=== PATIENT | female | born 2000 | race African-American/Black ===

== ENCOUNTER 2021-02-23 10:58 | Emergency (ER) | payer MEDICAID, SELFPAY ==
[2021-02-23 11:27] VITALS: BP 132/74; PULSE 63; RESP 18; TEMP 36.9; O2SAT 100; BMI 25.0
--- NOTE | 2021-02-23 12:03 | ED_ITS ---
HPI - Animal Bite General Chief Complaint: Animal Bite Stated Complaint: dog bite Time Seen by Provider: 02/23/21 11:40 Source: patient Mode of arrival: ambulatory Limitations: no limitations History of Present Illness HPI narrative: 20-year-old here with complaints of dog bite to the right and left hand. They tell me that the dog that they have is unvaccinated and has had some increasing aggression over the last few weeks. They are considering getting him noted. Today bit the patient's left and right hand was several puncture sites noted. Again not vaccinated for rabies. Patient last had a tetanus in 2011. complaint: animal bite Onset (ago): hour(s) Animal: dog Description of animal: household pet Related Data Previous Rx's Medication Instructions Recorded amoxicillin 875 mg-potassium 1 tab PO BID #14 tab 02/23/21 clavulanate 125 mg tablet (Augmentin) Allergies Allergy/AdvReac Type Severity Reaction Status Date / Time No Known Allergies Allergy Verified 02/23/21 11:31 Review of Systems Review of Systems: Yes all other systems are reviewed and are negative Constitutional: Constitutional: Reports no additional constitutional complaints, Denies body ache(s), Denies chills, Denies fever(s), Denies headache(s) and Denies weakness Eyes: Eyes: Reports no additional eye complaints and Denies change in vision ENT: Reports system reviewed and no additional complaints, except as documented, Denies dizziness, Denies headache(s), Denies nasal congestion, Denies nasal discharge and Denies neck pain Cardiovascular: Cardiovascular: Reports no additional cardiovascular complaints, Denies chest pain, Denies leg edema and Denies dyspnea Respiratory: Respiratory: Reports no additional respiratory complaints, Denies cough and Denies dyspnea Gastrointestinal: Gastrointestinal: Reports no additional gastrointestinal c omplaints, Denies abdominal pain, Denies diarrhea, Denies nausea and Denies vomiting Genitourinary: Genitourinary: Reports no additional female genitourinary complaints and Denies urinary incontinence Musculoskeletal: Musculoskeletal: Reports no additional musculoskeletal complaints, Denies back pain, Denies arthralgias, Denies joint swelling, Denies neck pain, Denies numbness and Denies tingling Integumentary/Breasts: Skin/Breast: Reports system reviewed and no additional complaints, except as docu and Denies rash Comments: +puncture wounds Neurologic: Reports system reviewed and no additional complaints, except as documented, Denies Abnormal speech present, Denies dizziness, Denies headache(s), Denies numbness, Denies tingling and Denies weakness PMFSH Past Medical History Attestation statement: The following information was validated with the patient. Source: old records reviewed and nursing notes reviewed Medical History No known health problems Social History Social History Advance Directives: No Advance Directives Information Provided: No Patient : No Physical Exam Vital Signs: Vital Signs: Last Vital Signs Temp 98.4 F 02/23/21 11:27 Pulse 63 02/23/21 11:27 Resp 18 02/23/21 11:27 BP 132/74 02/23/21 11:27 Pulse Ox 100 02/23/21 11:27 Body Mass Index 25.0 Const: General: cooperative, healthy appearing, comfortable and no acute distress Orientation/consciousness: patient oriented x3 Limitations: no limitations HENMT: Head: Yes normal to inspection Ears: hearing grossly normal bilaterally General nose exam: Normal external nose present Face and sinus: Yes normal facial exam Mouth: Normal oral and palatal mucosa present Throat: Yes posterior oropharynx normal Eyes: General: appearance normal, both eyes and all related structures Pupils: Equal, round and reactive pupils present Neck: Neck: Yes normal visual inspection Chest: Chest palpation & inspection: normal inspection of the chest Resp: Effort & Inspection: normal respiratory effort Auscultation: clear to auscultation bilaterally Cardio: Rate: regular rate Rhythm: regular rhythm Peripheral pulses: Peripheral pulses 2+ throughout GI: Inspection: Yes normal to inspection Palpation (GI): Soft to palpation and nontender Auscultation: normal bowel sounds Back/Spine/Pelvis: Thoracic/Lumbar Spine: thoracic and lumbar spine normal to inspection Skin: General skin exam: no rashes or lesions noted Neuro: General: patient oriented x3, no focal motor deficits and normal sensation to monofilament Cranial nerves: Yes Equal, round and reactive pupils present Cognition (Neuro): normal cognition Speech: No Abnormal speech present Gait exam (Neuro): Normal gait present Motor exam (neuro): 5/5 motor strength present throughout Extrem: Other: Puncture wounds noted to the right 1st digit and to the left hand. General: Yes normal to inspection Course Course Course Narrative: Puncture wounds to the bilateral hands from a patient's dog that is unvaccinated. I offer the patient may observe her dog at for several days and hold on receiving the rabies series but she wants to receive her Isatu series. Therefore I ordered hyper-rab, tetanus to be updated and a dose of oral antibiotics reviewed worrisome signs and symptoms when to return to the emergency department. Comfortable discharge home. MDM - Animal Bite Differential Diagnosis Differential diagnosis: Likely bite by animal Medical Records Attestation: I reviewed the patient's medical records. Lab Data Attestation: I reviewed the patient's lab results. Discharge Plan Discharge Clinical Impression: Bite by animal, Dog bite Patient Disposition: Home, Self-Care Instructions: Animal Bite (ED), Rabies (ED) Additional Instructions: keep the wounds clean, covered and dry, follow the rabies vaccine series Return for increasing redness, swelling or pain or fever Prescriptions: New amoxicillin-pot clavulanate [Augmentin] 875-125 mg tablet 1 tab PO BID Qty: 14 RF: 0 Referrals: Physician,None [Primary Care Provider] - 2 days
[2021-02-23] MEDS: Diphth,Pertus(ACell),Tet Adult 0.5 ML SYRINGE IM (12:07)
[2021-02-23] MEDS: Amoxicillin/Potassium Clav 875 MG TABLET PO (12:07)
[2021-02-23] MEDS: Rabies Immune Globulin/PF 1,500 UNIT/5 ML VIAL 1406.14 UNIT IM (12:23)
--- NOTE | 2021-02-23 12:55 | PC.NURSE ---
ORDER FOR RABIES VACCINATIONS FAXED TO PHARMACY AND SHORT STAY.
== END 2021-02-23 12:55 | disposition home or self-care (01) ==
PROVIDERS: Emergency Provider Emergency Medicine
DX: S61.432A Puncture wound without foreign body of left hand, initial encounter (principal); S61.431A Puncture wound without foreign body of right hand, initial encounter; W54.0XXA Bitten by dog, initial encounter; Y93.9 Activity, unspecified; Y92.009 Unspecified place in unspecified non-institutional (private) residence as the place of occurrence of the external cause; Y99.9 Unspecified external cause status; Z20.3 Contact with and (suspected) exposure to rabies
CPT/HCPCS: 90375; 90471; 90472; 90715; 99283; 99284

== ENCOUNTER 2021-02-26 17:25 | Outpatient (REF) | payer MEDICAID, SELFPAY | END 2021-02-26 17:26 | disposition home or self-care (01) | LOC: HO.MDS 17:25 | PROVIDERS: Visit Provider Nurse Practitioner Family | DX: Z29.14 Encounter for prophylactic rabies immune globulin (principal); S61.452D Open bite of left hand, subsequent encounter; S61.451D Open bite of right hand, subsequent encounter; W54.0XXD Bitten by dog, subsequent encounter; Z20.3 Contact with and (suspected) exposure to rabies | CPT/HCPCS: 90471; 90675 ==

== ENCOUNTER 2021-08-06 10:09 | Outpatient (REF) | payer MEDICAID, SELFPAY ==
[2021-08-06 10:47] LABS: COVID-19 Test Positive (Negative); IDNOW Serial# 16C4AD1C
== END 2021-08-06 10:10 | disposition home or self-care (01) ==
LOC: HO.LAB 10:09
PROVIDERS: Visit Provider Internal Medicine
DX: Z20.822 Contact with and (suspected) exposure to COVID-19 (principal)
CPT/HCPCS: 87635; C9803

== ENCOUNTER 2023-05-17 09:10 | Emergency (ER) | payer BC, SELFPAY ==
[2023-05-17 09:12] VITALS: BP 120/69; RESP 16; TEMP 36.4; O2SAT 98; BMI 21.8
[2023-05-17 09:32] LABS: MANUAL DIFF FLAG NO
[2023-05-17 09:38] LABS: Basophils Percent Auto 0.7 % (0-2); Eosinophils Absolute Auto 0.1 X10*3/uL (0.0-0.4); Eosinophils Percent Auto 1.6 % (0-4); Hematocrit 46.6 % (37.0-47.0); Hemoglobin 15.3 g/dl (12.0-16.0); Imm Gran Abs Auto 0.01 X10*3/uL (0.00-0.03); Imm Gran Pct Auto 0.2 % (0.0-0.4); Lymphocytes Absolute Auto 1.3 X10*3/uL (1.2-4.9); Lymphocytes Percent Auto 22.5 % (20-40); Mean Corpuscular HGB Conc 32.8 g/dl (31.0-35.0); Mean Corpuscular Hemoglobin 28.6 pg (27.0-33.0); Mean Corpuscular Volume 87.1 fL (80.0-98.0); Mean Platelet Volume 9.4 fL (9.4-12.3); Monocytes Absolute Auto 0.9 X10*3/uL (0.1-1.2); Monocytes Percent Auto 15.4 % (2-11); Neutrophils Absolute Auto 3.5 x10*3/uL (2.0-8.3); Neutrophils Percent Auto 59.6 % (45-73); Platelet Count 246 X10*3/uL (160-400); Red Blood Count 5.35 X10*6/uL (4.20-5.50); Red Cell Distribution Width 12.9 % (11.0-16.0); White Blood Count 5.8 X10*3/uL (4.8-10.8)
[2023-05-17 10:03] LABS: Alanine Aminotransferase 11 U/L (0-31); Albumin Level 4.3 g/dL (3.5-5.0); Alkaline Phosphatase 54 U/L (39-117); Anion Gap 11 (12-20); Aspartate Amino Transferase 14 U/L (5-31); Bilirubin Direct 0.2 mg/dL (0.0-0.5); Bilirubin Total 0.3 mg/dL (0.0-1.0); Blood Urea Nitrogen 13 mg/dL (9-16); Carbon Dioxide 28 mmol/L (22-29); Chloride 104 mmol/L (96-108); Creatinine Clr Calc Pharmacy 95.5; Estimated Glomerular Filt Rate > 60; Glucose Random 90 mg/dL (60-115); Potassium 3.9 mmol/L (3.3-5.1); Sodium 139 mmol/L (135-145); Total Protein 6.9 g/dL (6.5-8.0)
--- NOTE | 2023-05-17 10:20 | ED_ITS ---
HPI - Nausea/Vomiting/Diarrhea General Chief complaint: Nausea/Vomiting/Diarrhea Stated complaint: Nausea 3 days Time Seen by Provider: 05/17/23 10:10 Source: patient Mode of arrival: ambulatory Limitations: no limitations History of Present Illness HPI Narrative: 23 year old female to male present to the ED today for evaluation of nausea without vomiting x3 days. Endorses dull ache to her epigastric region. States that lying down helps with the nausea/ abdominal discomfort. Has tried pepto bismol at home without relief. Denies exacerbation of symptoms with eating. Has never had these symptoms before. Endorses marijuana use daily. Denies etoh consumption or other ilicit substance use. Denies excessive NSAID use. Denies previous abdominal surgeries. Denies sick contacts. Denies fever, chills, sore throat, headache, dizziness, diarrhea, constipation, dysuria, hematuria. Last BM last night. Denies chance of . MD elicited complaint: nausea and vomiting Associated nausea: Yes Associated abdominal pain: No Location of pain: none Related Data Previous Rx's Medication Instructions Recorded amoxicillin 875 mg-potassium 1 tab PO BID #14 tabs 02/23/21 clavulanate 125 mg tablet (Augmentin) famotidine 20 mg tablet (Pepcid AC) 20 mg PO DAILY 30 days #30 tabs 05/17/23 ondansetron 4 mg disintegrating 4 mg PO DAILY PRN nausea and 05/17/23 tablet vomiting 5 days #14 tabs Allergies Allergy/AdvReac Type Severity Reaction Status Date / Time No Known Allergies Allergy Verified 02/23/21 11:31 Review of Systems 2 Review of Systems: Constitutional: No fever, chills, fatigue, night sweats, weight changes ENT/Mouth: No ear pain, hearing loss, nasal congestion, sinus pain, rhinorrhea, sore throat Eyes: No eye pain, swelling, redness, vision changes, discharge Cardio: No chest pain, palpitations, A[place]STA, orthopnea, peripheral edema Pulm: No SOB, cough, sputum, wheezing, dyspnea, hemoptysis GI: +nausea, No vomiting, hematemesis, +abdominal pain, No diarrhea, constipation, hematochezia, melena : No irregular bleeding, dysuria, frequency, urgency, hesitancy, hematuria, flank pain MSK: No back pain, neck pain, joint pain, myalgias Skin: No lesions, rashes Neuro: No weakness, numbness, paresthesias, LOC, dizziness, headache All other systems reviewed and are negative. Gastrointestinal: Gastrointestinal: Reports nausea PMFSH Past Medical History Attestation statement: The following information was validated with the patient. Source: old records reviewed and nursing notes reviewed Medical History No known health problems Social History Social History Advance Directives: No Physical Exam 2 Vital Signs: Vital Signs: Last Vital Signs Temp 97.6 F 05/17/23 09:12 Pulse 66 05/17/23 11:17 Resp 16 05/17/23 09:12 BP 101/68 05/17/23 11:17 Pulse Ox 98 05/17/23 11:17 O2 Del Method Room Air 05/17/23 11:17 BMI result Body Mass Index 21.8 Vital signs stable, afebrile. Const: General: cooperative, healthy appearing, comfortable, no acute distress, alert and awake Orientation/consciousness: patient oriented x3 L imitations: no limitations HEENT: Head: Yes normal to inspection, Yes normocephalic and Yes atraumatic Mouth: Normal oral and palatal mucosa present Throat: Yes posterior oropharynx normal Eyes: General: appearance normal, both eyes and all related structures C onjunctivae: conjunctivae normal Sclerae: sclerae normal Pupils: Equal, round and reactive pupils present Neck: Neck: Yes normal visual inspection, Yes full ROM, Yes no lymphadenopathy and Yes no meningeal signs Resp: Effort & Inspection: normal respiratory effort and able to speak in complete sentences Auscultation: clear to auscultation bilaterally Cardio: Rate: regular rate Rhythm: regular rhythm GI: Other: + abdomen soft, nondistended, mildly ten kesha to palpation of the epigastric region without rebound tenderness or guarding. Negative Rovsing sign. Negative McBurney point tenderness. Negative Gentile sign. Normoactive bowel sounds x4. Inspection: Yes normal to inspection : General: Yes no CVA tenderness Back/Spine/Pelvis: Back: no CVA tenderness Skin: General skin exam: no rashes or lesions noted Neuro: General: patient oriented x3, gait normal and no meningeal signs C ranial nerves: Yes Equal, round and reactive pupils present Extrem: General: Yes normal to inspection and Yes capillary refill normal Course Course Course Narrative: CBC without leukocytosis. No anemia. H&H stable. Chemistry without acute electrolyte abnormality requiring intervention. Normal liver function. Normal renal function. Urine without infection or . > There is no clear etiology for patient's nausea. GI cocktail ordered. Plan for re-evaluation 1216-- patient has tested negative for COVID, influenza, RSV. There is no clear etiology for patient's nausea. On re-evaluation, patient states that she is feeling better after receiving the GI cocktail. I suspect possible gastritis. Will send patient home with isamel and tahir. Will aslo provide her with referral to GI specialist and PCP as she does not currently have one. I discussed all workup results with patient. Discussed worrisome signs symptoms of when to return to the ED. all questions answered at this time. Patient is agreeable disposition stable for discharge. Medications Administered Discontinued Medications Generic Name Dose Route Start Last Admin Trade Name Freq PRN Reason Stop Dose Admin Al Hydroxide/Mg Hydroxide 30 ml 05/17/23 10:55 05/17/23 11:53 Magnesium Hydrox/Alum Hydrox 30 Ml Oral.Susp PO 05/17/23 10:56 30 ml ONCE ONE Administration Belladonna Alkaloids/Phenobarbital 10 ml 05/17/23 10:55 05/17/23 11:53 Phenobarb/Hyoscy/Atropine/Scop 10 Ml Elixir PO 05/17/23 10:56 10 ml ONCE ONE Administration Ondansetron HCl 4 mg 05/17/23 10:53 05/17/23 11:53 Ondansetron Odt 4 Mg Tab.Rapdis TRANSLINGU 05/17/23 10:54 4 mg ONCE ONE Administration Medical Decision Making Medical Decision Making [facility] Narrative: 23 year old female to male present to the ED today for evaluation of nausea without vomiting x3 days. Vital signs are stable. Afebrile. Not tachycardic. Patient is nontoxic-appearing and in no acute distress. Abdomen is soft, nondistended, mildly tender to palpation of the epigastric region. No rebound or guarding. Normoactive bowel sounds x4. Negative Rovsing sign. Negative McBurney point tenderness. Negative Gentile sign. No CVAT bilaterally. Clinical concern for gastritis, gastroenteritis, PUD, GERD, , viral syndrome. Lower suspicion for pancreatitis, cholecystitis, appendicitis. Unlikely acute abdomen, SBO, ischemic bowel. Plan for labs, urine, u preg, viral swabs, and nausea control. Differential Diagnosis Differential Diagnoses: The differential diagnosis associated with the presentation includes as above. Admission/Observation Not indicated Lab Data MDM Lab Attestation statement: I reviewed the patient's lab results. as above 05/17/23 09:19 05/17/23 09:19 Labs: Lab Results 05/17/23 05/17/23 05/17/23 Range/Units 09:19 10:22 11:18 WBC 5.8 (4.8-10.8) X10*3/uL RBC 5.35 (4.20-5.50) X10*6/uL Hgb 15.3 (12.0-16.0) g/dl Hct 46.6 (37.0-47.0) % MCV 87.1 (80.0-98.0) fL MCH 28.6 (27.0-33.0) pg MCHC 32.8 (31.0-35.0) g/dl RDW 12.9 (11.0-16.0) % Plt Count 246 (160-400) X10*3/uL MPV 9.4 (9.4-12.3) fL Immature Gran % (Auto) 0.2 (0.0-0.4) % Neut % (Auto) 59.6 (45-73) % Lymph % (Auto) 22.5 (20-40) % [place] % (Auto) 15.4 H (2-11) % Eos % (Auto) 1.6 (0-4) % Baso % (Auto) 0.7 (0-2) % Lymph # (Auto) 1.3 (1.2-4.9) X10*3/uL [place] # (Auto) 0.9 (0.1-1.2) X10*3/uL Eos # (Auto) 0.1 (0.0-0.4) X10*3/uL Baso # (Auto) 0.0 (0.0-0.2) X10*3/uL Abs Immat Gran (auto) 0.01 (0.00-0.03) X10*3/uL Absolute Neuts (auto) 3.5 (2.0-8.3) x10*3/uL Absolute Nucleated RBC 0.000 (0.0-0.012) X10*3/uL Nucleated RBC % (auto) 0.0 (0.0-0.2) /100WBC Sodium 139 (135-145) mmol/L Potassium 3.9 (3.3-5.1) mmol/L Chloride 104 (96-108) mmol/L Carbon Dioxide 28 (22-29) mmol/L Anion Gap 11 L (12-20) BUN 13 (9-16) mg/dL Creatinine 0.85 (0.5-1.4) mg/dL Estim Creat Clear Calc 95.5 Estimated GFR > 60 Random Glucose 90 (60-115) mg/dL Calcium 9.0 (8.4-10.2) mg/dL Magnesium 2.1 (1.6-2.6) mg/dL Total Bilirubin 0.3 (0.0-1.0) mg/dL Direct Bilirubin 0.2 (0.0-0.5) mg/dL AST 14 (5-31) U/L ALT 11 (0-31) U/L Alkaline Phosphatase 54 (39-117) U/L Total Protein 6.9 (6.5-8.0) g/dL Albumin 4.3 (3.5-5.0) g/dL Lipase 13 (8-78) U/L Urine Color Yellow Urine Appearance Clear Urine pH 7.0 (5.0-9.0) Ur Specific [place] 1.010 (1.005-1.025) Urine Protein Negative (Neg-Trace) mg/dL Urine Glucose (UA) Negative (Negative) mg/dL Urine Ketones Negative (Negative) mg/dL Urine Blood Negative (Negative) Urine Nitrite Negative (Negative) Ur Leukocyte Esterase Negative (Negative) Urine Test NEGATIVE (NEGATIVE) Influenza Type A (PCR) NEGATIVE (Negative) Influenza Type B (PCR) NEGATIVE (Negative) RSV RNA Qual (PCR) NEGATIVE (Negative) SARS-CoV-2 RNA (RT-PCR) NEGATIVE (Negative) Independent Historian Clinical information obtained from an independent historian. History obtained from or confirmed by: Other (Significant other) External Record Review External record reviewed: Inpatient record Prescription Management I considered prescription management with: Pain Medication Social Determinants Patient?s care significantly limited by Social Determinants of Health including: Other Social Determinant of Health Critical Care Time Critical Care Time Critical Care Time: No Discharge Plan Discharge Clinical Impression: Nausea without vomiting Patient Disposition: Home, Self-Care Instructions: Gastritis (ED), Diet for Stomach Ulcers and Gastritis (ED), Gastroesophageal Reflux in Infants (ED) Additional Instructions: Your lab workup today is reassuring. You tested negative for COVID, flu, RSV. Your urine did not show infection or . Your symptoms improved with medication today. You have been provided with a referral to a GI specialist. You may call them to establish care. They will not call you. You have also been provided with a referral to a PCP as you do not currently have 1. You may call them to establish care. They will not call you. Zofran as an antiemetic that has been sent to your pharmacy. Take this as needed for nausea/vomiting. Pepcid (famotidine) is an and acid that has been sent to your pharmacy. Take this daily to help with symptoms. Please avoid spicy foods and NSAIDs such as ibuprofen as these can irritate the stomach. If symptoms worsen, please return to the ED. In the case of an emergency call 911. GI Specialist: [phone] Prescriptions: New ondansetron 4 mg tablet,disintegrating 4 mg PO DAILY PRN (Reason: nausea and vomiting) 5 Days Qty: 14 0RF famotidine [Pepcid AC] 20 mg tablet 20 mg PO DAILY 30 Days Qty: 30 0RF No Action amoxicillin-pot clavulanate [Augmentin] 875-125 mg tablet 1 tab PO BID Qty: 14 0RF Referrals: [facility] [place] [facility] [place] [facility] [place] [facility] [place] [facility] [place] [facility] [place] Group[place]
[2023-05-17 10:30] LABS: Appearance Urine Clear; Color Urine Yellow; Glucose Urine UA Negative (Negative); Leukocyte Esterase Urine Negative (Negative); Nitrite Urine Negative (Negative); Urine Blood Negative (Negative); Urine Ketones Negative (Negative); Urine Protein Negative (Neg-Trace)
[2023-05-17 10:33] LABS: UPreg QC Valid YES; Urine Pregnancy NEGATIVE (NEGATIVE)
[2023-05-17 11:17] VITALS: BP 101/68; PULSE 66; O2SAT 98
[2023-05-17 11:42] LABS: Lipase 13 U/L (8-78); Magnesium 2.1 mg/dL (1.6-2.6)
[2023-05-17] MEDS: PHENobarb/Hyoscy/Atropine/Scop 10 ML ELIXIR PO (11:53)
[2023-05-17] MEDS: Magnesium Hydrox/Alum Hydrox 30 ML ORAL.SUSP PO (11:53)
[2023-05-17] MEDS: Ondansetron ODT 4 MG TAB.RAPDIS TRANSLINGU (11:53)
[2023-05-17 12:09] LABS: Influenza A PCR NEGATIVE (Negative); Influenza B PCR NEGATIVE (Negative); Resp Syncy Virus RNA Qual PCR NEGATIVE (Negative); SARS COV2 PCR INHOUSE NEGATIVE (Negative)
== END 2023-05-17 12:57 | disposition home or self-care (01) ==
PROVIDERS: Physician Assistant Medical; Emergency Provider Emergency Medicine
DX: R11.0 Nausea (principal); R10.13 Epigastric pain; Z79.899 Other long term (current) drug therapy; Z20.828 Contact with and (suspected) exposure to other viral communicable diseases; Z11.52 Encounter for screening for COVID-19
CPT/HCPCS: 0241U; 36415; 80048; 80076; 81003; 81025; 83690; 83735; 85025; 99283; 99284

== ENCOUNTER → 2024-04-24 08:16 | Outpatient (BNV) | payer BC, SELFPAY | PROVIDERS: Admitting Provider Psychiatry & Neurology Psychiatry; Emergency Provider Emergency Medicine; Visit Provider Internal Medicine | DX: Z13.6 Encounter for screening for cardiovascular disorders (principal) | CPT/HCPCS: 93010 ==

== ENCOUNTER → 2024-04-24 13:56 | Outpatient (BNV) | payer BC, SELFPAY | PROVIDERS: Admitting Provider Psychiatry & Neurology Psychiatry; Emergency Provider Emergency Medicine; Visit Provider Psychiatry & Neurology Psychiatry | DX: F33.1 Major depressive disorder, recurrent, moderate (principal); F43.11 Post-traumatic stress disorder, acute | CPT/HCPCS: 90792; 99232; 99239 ==